=== PATIENT | male | born 1995 | race Asian ===

== ENCOUNTER 2022-03-28 11:38 | Inpatient (IN) | payer OTHER ==
[~2022-03-28] VITALS: Ht 182.9 cm; Wt 97.5 kg
[2022-03-28 11:49] VITALS: BP_SYST 159
--- NOTE | 2022-03-28 11:54 | NUR ---
Pt present to ED accompanied by father with complaint of epistaxis. denies CP or SOB. reports being dizzy. AOx4 GCS 15. Taken to main ED to be assessed by ED physician.
--- NOTE | 2022-03-28 12:31 | NUR ---
MD GOLD AT BEDSIDE FOR ASSESS. PT VSS. NAD NOTED. AWAITING ADDITIONAL ORDERS. WILL CONT TO MONITOR PT.
[2022-03-28 13:05] LABS: INR 1.1 (0.80-1.20); PROTHROMBIN TIME 11.3 SECS (9.5-12.5)
[2022-03-28 13:31] LABS: BASOPHILS % (AUTO) 0.1 % (0.0-2.0); EOSINOPHILS % (AUTO) 1.6 % (0.0-4.0); HEMATOCRIT 33.6 % (36-54); HEMOGLOBIN 11.5 g/dL (14.0-18.0); LYMPHOCYTES # (AUTO) 0.3 K/uL (1.0-5.5); LYMPHOCYTES % (AUTO) 9.8 % (20.5-51.5); MEAN CORPUSCULAR HEMOGLOBIN 30 pg (27-31); MEAN CORPUSCULAR HGB CONC 34 % (32-36); MEAN CORPUSCULAR VOLUME 87 fL (79.0-98.0); MONOCYTES # (AUTO) 0.1 K/uL (0.0-1.0); MONOCYTES % (AUTO) 5.3 % (1.7-9.3); NEUTROPHILS # (AUTO) 2.2 K/uL (1.8-7.7); NEUTROPHILS % (AUTO) 83.2 % (40.0-70.0); RED BLOOD CELL COUNT(AUTO) 3.88 MIL/uL (4.2-6.2); RED CELL DISTRIBUTION WIDTH 12.6 % (9.0-15.0); WHITE BLOOD COUNT (AUTO) 2.7 K/uL (4.8-10.8)
[2022-03-28 13:52] LABS: POTASSIUM 4.2 mmol/L (3.5-5.1)
[2022-03-28 13:53] LABS: CALCIUM 8.4 mg/dL (8.4-11.0); CREATININE 1.01 mg/dL (0.55-1.30)
[2022-03-28 13:54] LABS: ALBUMIN 2.9 g/dL (3.4-4.8); TOTAL BILIRUBIN 0.5 mg/dL (0.0-1.0)
[2022-03-28 15:00] VITALS: BP_SYST 127
[2022-03-28 15:06] LABS: PLATELET COUNT (AUTO) 30 K/uL (130-430)
[2022-03-28 16:01] LABS: BASOPHILS % (AUTO) 0.5 % (0.0-2.0); EOSINOPHILS % (AUTO) 1.6 % (0.0-4.0); HEMATOCRIT 33.2 % (36-54); HEMOGLOBIN 11.4 g/dL (14.0-18.0); LYMPHOCYTES # (AUTO) 0.4 K/uL (1.0-5.5); LYMPHOCYTES % (AUTO) 17.2 % (20.5-51.5); MEAN CORPUSCULAR HEMOGLOBIN 30 pg (27-31); MEAN CORPUSCULAR HGB CONC 34 % (32-36); MEAN CORPUSCULAR VOLUME 86 fL (79.0-98.0); MONOCYTES # (AUTO) 0.1 K/uL (0.0-1.0); MONOCYTES % (AUTO) 5.7 % (1.7-9.3); NEUTROPHILS # (AUTO) 1.9 K/uL (1.8-7.7); RED BLOOD CELL COUNT(AUTO) 3.84 MIL/uL (4.2-6.2); RED CELL DISTRIBUTION WIDTH 12.9 % (9.0-15.0); WHITE BLOOD COUNT (AUTO) 2.6 K/uL (4.8-10.8)
[2022-03-28 16:09] LABS: PLATELET COUNT (AUTO) 50 K/uL (130-430)
[2022-03-28 16:13] LABS: INR 1.1 (0.80-1.20); PROTHROMBIN TIME 10.9 SECS (9.5-12.5)
--- NOTE | 2022-03-28 17:10 | NUR ---
PT NOTIFIED OF ADMISSION PER HOPPER FILLER MD. PERAZA. FATHER STATES HE AND HIS AND SON HAVE DISCUSSED IT, DOES NOT WANT TO BE ADMITTED. MD GOLD AT BEDSIDE TO DISCUSS CHOICE AND UNKNOWN RISKS. PT AWARE. PT STILL WISHES TO SIGN OUT AMA, DOES NOT WANT TO BE ADMITTED. PT VSS. NAD NOTED. NO NOSEBLEED NOTED. TO FILL OUT PROPER AMA FORM. TO D/C PT AMA.
--- NOTE | 2022-03-28 17:12 | NUR ---
COVID SWAB DONE AND SENT TO LAB
== END 2022-03-28 17:10 | disposition left against medical advice (07) | DRG 813 ==
LOC: SED 11:38 → SMU 17:00
PROVIDERS: ADMIT Family Medicine; ATTEND Family Medicine
DX: D69.6 Thrombocytopenia, unspecified (principal); R04.0 Epistaxis; Z20.822 Contact with and (suspected) exposure to COVID-19; Z88.2 Allergy status to sulfonamides
CPT/HCPCS: 36415; 80053; 85025; 85610-TC; 85730-TC; 86038; 99285